=== PATIENT | male | born 1960 | race Caucasian/White ===

== ENCOUNTER 2021-04-19 16:22 | Emergency (ER) | payer OTHER ==
[~2021-04-19] VITALS: Ht 182.9 cm; Wt 90.7 kg
[2021-04-19] MEDS ORDERED: ACETAMINOPHEN 325 MG TAB PO ONE (17:00)
[2021-04-19] MEDS ORDERED: CASIRIVIMAB/IMDEVIMAB 10 ML in SODIUM CHLORIDE 0.9% 100 ML IV ONE (17:00)
== END 2021-04-19 18:45 | disposition home or self-care (01) ==
LOC: ER 17:21
DX: R50.9 Fever, unspecified (principal); U07.1 COVID-19; I10 Essential (primary) hypertension; G35 Multiple sclerosis
CPT/HCPCS: 99283